=== PATIENT | male | born 2000 ===

== ENCOUNTER 2024-08-14 01:50 | Emergency (ER) | payer OTHER ==
[~2024-08-14] VITALS: Ht 172.7 cm; Wt 79.9 kg
[2024-08-14] MEDS ORDERED: DIPHTH,PERTUSS(ACELL),TET VAC 0.5 ML SYRINGE IM ONE (02:15)
[2024-08-14 02:55] VITALS: BP 153/101
== END 2024-08-14 02:55 | disposition home or self-care (01) ==
LOC: ED 01:50
DX: S01.81XA Laceration without foreign body of other part of head, initial encounter (principal); S51.811A Laceration without foreign body of right forearm, initial encounter; W29.8XXA Contact with other powered hand tools and household machinery, initial encounter
CPT/HCPCS: 90471; 90715; 99284-25